=== PATIENT | male | born 1935 | race Caucasian/White ===

== ENCOUNTER → 2017-06-04 | Outpatient (CLI) | payer MEDICARE, OTHER ==
--- NOTE | 2017-06-04 15:16 | KCIC ---
MRI of the thoracic spine without contrast 06/04/2017 CLINICAL HISTORY: Increasing mid and low back pain. History of thoracic spine injury at the age of 18 with previous surgery. TECHNIQUE: Unenhanced T1-weighted, T2-weighted and recovery sagittal and T1-weighted and T2-weighted axial images of the thoracic spine were obtained. T2-weighted sagittal images of the cervical, thoracic and lumbar spine were obtained for localization purposes. FINDINGS: No previous imaging studies are available for comparison. Mild S-shaped curvature of the thoracolumbar spine is seen. Degenerative signal changes and loss of height are seen involving all the disks of the thoracic spine. Degenerative signal changes are seen within the marrow surrounding these discs. Magnetic susceptibility artifact related to a fusion device is seen at T4-5. The thoracic spinal cord is normal morphology, position, and signal characteristics. There is no MRI evidence of an acute compression fracture involving the thoracic vertebrae. A 1.8 cm rounded high signal intensity lesion is seen involving the superior pole of the right kidney on the T2-weighted images. This likely represents a cyst. On the axial images degenerative changes are seen involving the thoracic disc spaces consisting of minimal to mild generalized disc bulges and degenerative changes involving the facet joints. A focal central/right paracentral disc protrusion is seen at T5-6. This measures 3 mm in AP diameter. These findings do not result in areas of significant central spinal canal or neural foraminal stenosis at any level. IMPRESSION: Degenerative changes are seen involving the thoracic spine as outlined above. These findings do not result in significant central spinal canal or neural foraminal stenosis at any level. No acute abnormality is seen. Electronically signed by: Savage Malhotra MD (06/04/2017 3:12 PM) [id number]
--- NOTE | 2017-06-04 15:27 | KCIC ---
MRI of the lumbar spine without contrast 06/04/2017 CLINICAL HISTORY: Increasing low back pain for several months. TECHNIQUE: Unenhanced T1-weighted and T2-weighted sagittal and axial and inversion recovery sagittal images of the lumbar spine were obtained. FINDINGS: Very mild S-shaped curvature of the thoracolumbar spine is seen. Degenerative signal changes are seen involving all of the disks of the lumbar spine. Degenerative signal changes are seen within the marrow surrounding these discs. Loss of height of the L4-5 disc is noted. Schmorl's node formation is seen scattered throughout the vertebral endplates of the lumbar disks. The conus medullaris is normal morphology, position, and signal characteristics. There is no MRI evidence of an acute compression fracture involving the lumbar vertebrae. At the L1-2 and L2-3 disc spaces there are mild generalized disc bulges. Degenerative changes are seen involving the facet joints bilaterally. There is mild ligamentum flavum hypertrophy bilaterally. These findings when combined do not result in significant central spinal canal or neural foraminal stenosis. At the L3-4 disc space there is a mild to moderate generalized disc bulge. Superimposed on this disc bulge is a focal central disc protrusion. This measures 5 mm in AP diameter degenerative changes are seen involving the facet joints bilaterally. There is mild to moderate ligamentum flavum hypertrophy bilaterally. There is prominence of the posterior epidural fat. Synovial cysts are seen projecting anteriorly from the facet joints, left greater than right. These measure 6 to 8 mm in size. These findings when combined do not result in significant central spinal canal or neural foraminal stenosis. At the L4-5 disc space is a mild generalized disc bulge. Degenerative changes are seen involving the facet joints bilaterally. There is mild ligamentum flavum hypertrophy bilaterally. These findings when combined do not result in significant central spinal canal or neural foraminal stenosis. At the L5-S1 disc space there is a mild to moderate generalized disc bulge. Degenerative changes are seen involving the facet joints, left greater than right. There is mild to moderate ligamentum flavum hypertrophy. These findings when combined do not result in significant central spinal canal stenosis. Mild left neural foraminal stenosis is seen. The right neural foramen is patent. 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 These findings do not result in significant central spinal canal stenosis at any level. Mild left neural foraminal stenosis is seen at L5-S1. Electronically signed by: Savage Malhotra MD (06/04/2017 3:24 PM) [id number]
== END | disposition home or self-care (01) ==
LOC: KCIC MRI 08:23
PROVIDERS: ATTEND Orthopaedic Surgery
DX: N28.89 Other specified disorders of kidney and ureter (principal); S29.9XXD Unspecified injury of thorax, subsequent encounter; X58.XXXD Exposure to other specified factors, subsequent encounter; M54.5 Low back pain; M24.28 Disorder of ligament, vertebrae
CPT/HCPCS: 72146; 72148